=== PATIENT | male | born 1955 | race Caucasian/White ===

== ENCOUNTER 2022-11-01 14:24 | Emergency (ER) | payer MEDICARE, OTHER ==
--- NOTE | 2022-11-01 14:32 | ERPHSYRPT ---
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 Patient called an ambulance and the paramedics brought him into the emergency department because of worsening shortness of breath since yesterday. Patient also received intravenous Lasix and intravenous Solu-Medrol in route to our facility today. Patient has noticed that his feet and ankle swelling are increasing as well. He was changed to Bumex to help remove some of the fluid in his feet and ankles. 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 Patient complains of chronic neck and back pain and he sees a pain specialist, Dr. Chang, here at the hospital. Patient did not have chest pain. Patient does not have abdominal pain. Patient is here because of worsening shortness of breath despite his oxygen therapy and increasing swelling in his ankles and feet bilaterally. Timing/Duration: yesterday, worse Activities at Onset: none Severity of Dyspnea-Max: moderate Severity of Dyspnea-Current: moderate Possible Cause: occasional episodes Modifying Factors: Improves With: activity (Worsens) Associated Symptoms: edema (Bilateral feet and anklespatient states that these are worsening), No chest pain/discomfort Allergies/Adverse Reactions: Iodinated Contrast Media Allergy (Verified 11/01/22 14:28) Travel Risk - International Travel Have you traveled outside of the country in past 3 weeks: No - Coronavirus Screening Are you exhibiting any of the following symptoms?: Yes Symptoms: Shortness of Breath Close contact with a COVID-19 positive Pt in past 14-21 Days: No - Review of Systems Constitutional: Weakness Eyes: No Symptoms Ears, Nose, & Throat: No Symptoms Respiratory: Dyspnea, Dyspnea on Exertion (CHRISTOPHER) Cardiac: No Symptoms Abdominal/Gastrointestinal: No Symptoms Genitourinary Symptoms: No Symptoms Musculoskeletal: No Symptoms Skin: No Symptoms Neurological: No Symptoms Psychological: No Symptoms Endocrine: No Symptoms Hematologic/Lymphatic: No Symptoms Immunological/Allergic: No Symptoms All Other Systems: Reviewed and Negative - Past Medical History Pertinent Past Medical History: Yes - Past Surgical History Past Surgical History: Yes - Nursing Vital Signs Nursing Vital Signs: Initial Vital Signs Temperature 97.9 F 11/01/22 14:29 Pulse Rate 97 H 11/01/22 14:29 Respiratory Rate 25 H 11/01/22 14:29 Blood Pressure 125/88 11/01/22 14:29 O2 Sat by Pulse Oximetry 99 11/01/22 14:29 Pain Scale Pain Intensity 4 - Physical Exam General Appearance: no apparent distress, alert, anxiety Eye Exam: PERRL/EOMI, eyes nml inspection Ears, Nose, Throat Exam: hearing grossly normal, normal ENT inspection, normal pharynx Neck Exam: normal inspection, non-tender, supple, full range of motion Respiratory Exam: normal breath sounds, lungs clear, airway intact, No chest tenderness, No respiratory distress Cardiovascular/Chest Exam: normal heart sounds, regular rate/rhythm Abdominal/Gastrointestinal Exam: soft, normal bowel sounds, No tenderness Rectal Exam: not done Extremity Exam: non-tender, normal range of motion, pedal edema (2+ edema feet and ankles) Neurologic Exam: alert, oriented x 3, cooperative, 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, normal mood/affect Skin Exam: normal color, warm, dry Lymphatic Exam: No adenopathy SpO2 Interpretation: normal O2 Delivery: Room Air - Course Nursing assessment & vital signs reviewed: Yes EKG Interpreted by Me: RATE (92), A-fib, Left Bundle Branch Block, Other (No acute ischemic changes present on today's twelve-lead EKG.) Ordered Tests: Active Orders 24 hr Category Date Time Status Twisting Frame Operator STAT Care 11/01/22 14:51 Active EKG-ER Only STAT Care 11/01/22 14:51 Active IV Insertion STAT Care 11/01/22 14:51 Active Oxygen-ED Only Nasal Cannula 3 lpm Care 11/01/22 14:50 Active Pulse Oximetry (ED) STAT Care 11/01/22 14:51 Active CHEST 1 VIEW (PORTABLE) Stat Exams 11/01/22 15:10 Completed CBC W DIFF Stat Lab 11/01/22 15:11 Completed CMP Stat Lab 11/01/22 15:11 Completed NT PRO BNPII Stat Lab 11/01/22 15:11 Completed PROTIME WITH INR Stat Lab 11/01/22 15:11 Completed TROPONIN Q4H Lab 11/01/22 15:11 Completed TROPONIN Q4H Lab 11/01/22 19:00 Ordered TROPONIN Q4H Lab 11/01/22 23:00 Ordered Medication Summary Discontinued Medications Generic Name Dose Route Start Last Admin Trade Name Suzanna PRN Reason Stop Dose Admin Bumetanide 1 mg 11/01/22 16:00 11/01/22 16:09 Bumetanide 0.25 Mg/Ml 4ml Vial IV 11/01/22 16:01 1 mg STAT ONE Administration Bumetanide Confirm 11/01/22 16:09 Bumetanide 0.25 Mg/Ml 4ml Vial Administered 11/01/22 16:10 Dose 1 mg .ROUTE .STK-MED ONE Ceftriaxone Sodium/Dextrose 1 g in 50 mls @ 100 mls/hr 11/01/22 15:23 11/01/22 16:17 Rocephin 1 Gm-D5w 50 Ml Bag IV 11/01/22 15:52 Infused STAT STA Infusion Ceftriaxone Sodium/Dextrose Confirm 11/01/22 15:45 Rocephin 1 Gm-D5w 50 Ml Bag Administered 11/01/22 15:46 Dose 1 g in 50 mls @ ud IV .STK-MED ONE Oxycodone/Acetaminophen 1 tab 11/01/22 15:53 11/01/22 15:55 Oxycodone / Apap 10/325 Mg 1 Tablet PO 11/01/22 15:54 1 tab STAT STA Administration Oxycodone/Acetaminophen Confirm 11/01/22 15:55 Oxycodone / Apap 10/325 Mg 1 Tablet Administered 11/01/22 15:56 Dose 1 tab .ROUTE .STK-MED ONE Potassium Chloride 20 meq 11/01/22 15:46 11/01/22 15:55 Potassium Chloride Tab 10 Meq Tab PO 11/01/22 15:47 20 meq STAT ONE Administration Potassium Chloride Confirm 11/01/22 15:55 Potassium Chloride Tab 10 Meq Tab Administered 11/01/22 15:56 Dose 20 meq PO .STK-MED ONE Lab/Rad Data: Laboratory Result Diagrams 11/01/22 15:11 11/01/22 15:11 Laboratory Results 11/01/22 11/01/22 11/01/22 Range/Units 15:11 15:11 15:11 WBC (4.0-10.5) x10^3/uL RBC (4.1-5.6) x10^6/uL Hgb (12.5-18.0) g/dL Hct (42-50) % MCV (78-100) fL MCH (26-32) pg MCHC (32-36) g/dL RDW (11.5-14.0) % Plt Count (150-450) x10^3/uL MPV (7.5-11.0) fL Gran % (36.0-66.0) % Immature Gran % (Auto) (0.00-0.4) % Nucleat RBC Rel Count (0.00-0.1) % Eos # (Auto) (0-0.5) x10^3/uL Immature Gran # (Auto) (0.00-0.03) x10^3u/L Absolute Lymphs (auto) (1.0-4.6) x10^3/uL Absolute Monos (auto) (0.0-1.3) x10^3/uL Absolute Nucleated RBC (0.00-0.01) x10^3u/L Lymphocytes % (24.0-44.0) % Monocytes % (0.0-12.0) % Eosinophils % (0.00-5.0) % Basophils % (0.0-0.4) % Absolute Granulocytes (1.4-6.9) x10^3/uL Basophils # (0-0.4) x10^3/uL PT (9.4-12.5) SECONDS INR (0.8-3.0) Sodium (137-145) mmol/L Potassium (3.5-5.1) mmol/L Chloride (98-107) mmol/L Carbon Dioxide (22-30) mmol/L Anion Gap (5-15) MEQ/L BUN (9-20) mg/dL Creatinine (0.66-1.25) mg/dL Estimated GFR ML/MIN Glucose (74-106) mg/dL Calcium (8.4-10.2) mg/dL Total Bilirubin (0.2-1.3) mg/dL AST (17-59) U/L ALT (0-50) U/L Alkaline Phosphatase (38-126) U/L Troponin I 0.086 H* (0.000-0.034) ng/mL NT-Pro-B Natriuret Pep 1630 (<300) pg/mL Serum Total Protein (6.3-8.2) g/dL Albumin (3.5-5.0) g/dL Influenza Type A Ag NEGATIVE (NEGATIVE) Influenza Type B Ag NEGATIVE (NEGATIVE) RSV (PCR) NEGATIVE (NEGATIVE) SARS-CoV-2 (PCR) NEGATIVE (NEGATIVE) 11/01/22 11/01/22 11/01/22 Range/Units 15:11 15:11 15:11 WBC 6.6 (4.0-10.5) x10^3/uL RBC 3.56 L (4.1-5.6) x10^6/uL Hgb 11.0 L (12.5-18.0) g/dL Hct 35.1 L (42-50) % MCV 98.6 (78-100) fL MCH 30.9 (26-32) pg MCHC 31.3 L (32-36) g/dL RDW 14.2 H (11.5-14.0) % Plt Count 289 (150-450) x10^3/uL MPV 9.2 (7.5-11.0) fL Gran % 76.8 H (36.0-66.0) % Immature Gran % (Auto) 0.3 (0.00-0.4) % Nucleat RBC Rel Count 0.0 (0.00-0.1) % Eos # (Auto) 0.15 (0-0.5) x10^3/uL Immature Gran # (Auto) 0.02 (0.00-0.03) x10^3u/L Absolute Lymphs (auto) 0.74 L (1.0-4.6) x10^3/uL Absolute Monos (auto) 0.59 (0.0-1.3) x10^3/uL Absolute Nucleated RBC 0.00 (0.00-0.01) x10^3u/L Lymphocytes % 11.3 L (24.0-44.0) % Monocytes % 9.0 (0.0-12.0) % Eosinophils % 2.3 (0.00-5.0) % Basophils % 0.3 (0.0-0.4) % Absolute Granulocytes 5.03 (1.4-6.9) x10^3/uL Basophils # 0.02 (0-0.4) x10^3/uL PT 14.2 H (9.4-12.5) SECONDS INR 1.33 (0.8-3.0) Sodium 139 (137-145) mmol/L Potassium 3.2 L (3.5-5.1) mmol/L Chloride 88 L (98-107) mmol/L Carbon Dioxide 40 H (22-30) mmol/L Anion Gap 14.2 (5-15) MEQ/L BUN 21 H (9-20) mg/dL Creatinine 1.11 (0.66-1.25) mg/dL Estimated GFR > 60.0 ML/MIN Glucose 113 H (74-106) mg/dL Calcium 7.3 L (8.4-10.2) mg/dL Total Bilirubin 0.60 (0.2-1.3) mg/dL AST 25 (17-59) U/L ALT 17 (0-50) U/L Alkaline Phosphatase 84 (38-126) U/L Troponin I (0.000-0.034) ng/mL NT-Pro-B Natriuret Pep (<300) pg/mL Serum Total Protein 7.2 (6.3-8.2) g/dL Albumin 4.1 (3.5-5.0) g/dL Influenza Type A Ag (NEGATIVE) Influenza Type B Ag (NEGATIVE) RSV (PCR) (NEGATIVE) SARS-CoV-2 (PCR) (NEGATIVE) - Progress Progress: improved, re-examined Air Movement: good Progress Note: 11/01/22 15:23 Chest x-ray was interpreted by the radiologist and I reviewed the impression. The impression shows a mild right base infiltrate versus atelectasis. 11/01/22 17:[address] patient. He has pneumonia and elevated troponin here in the emergency department. We do not have cardiology here at this facility to monitor him and intervene rapidly in the event the troponins continue to rise or there is some change on his EKG. We contacted the [facility] in [place]. They also do not have cardiology and stated that they recommend transferring him out because that is what they would do if if this patient was at their facility with these findings. This patient has medical issues of high complexity. This is based on review of the patient's past medical history, review of the patient's medication list, review of his drug allergies, history of present illness and physical findings on examination. 11/01/22 18:42 Patient has been diagnosed with right-sided pneumonia and elevated troponin. Patient has chronic atrial fibrillation. [facility] states that they do not have any beds available. Patient does not want to be transferred anywhere else. He wants to go home. I explained to him the need to be monitored and have serial troponin levels and to be in a facility where there is a perfect bind machine operator. He does not want admission to any hospital. He wants to go home. He understands the risks to going home including worsening condition and as well as benefits of inpatient monitoring and management. He states he will sign an AGAINST MEDICAL ADVICE form. 11/01/22 18:44 Blood Culture(s) Obtained: Yes Antibiotics given: Yes Counseled pt/family regarding: lab results, diagnosis, need for follow-up, rad results Medical Desision Making - Discussion of managment Reviewed:: Test results, Need for additional workup Agreed on:: Treatment plan - Diagnostic Testing Diagnostic test were ordered, analyzed, and reviewed by me: Yes Radiological Interpretation: Reviewed by me, Teleradiologist Report - Risk of complications The pt has a high risk of morbidity or mortality based on: Decision regarding hospitilization or escalation of hosp level of care - Departure Departure Disposition: AMA Clinical Impression: Atrial fibrillation, Shortness of breath, Pneumonia, Elevated troponin Condition: Fair Critical Care Time: Yes Critical Care Time(excluding separately billable procedures): Critical 30-74 mins (40) Referrals: DOCTOR,NO FAMILY [Primary Care Provider] - Follow up/PCP as directed Additional Instructions: Take your medication as prescribed. Return to the emergency department if symptoms worsen. Follow-up with your perfect bind machine operator and primary care provider tomorrow morning, 11/02/2022. Prescriptions: Levofloxacin [Levaquin 500 MG Tablet] 500 mg PO DAILY #7 tablet
[2022-11-01 14:44] VITALS: O2SAT 99
--- NOTE | 2022-11-01 15:14 | XRAY ---
Indication: Short of breath. Comparison: None Portable chest demonstrates mild right base infiltrate versus atelectasis. Remaining heart and lungs unremarkable with incidental CABG and left AICD. Bony thorax intact with osteopenia and mild degenerative changes.
[2022-11-01 15:18] LABS: Absolute Neutrophil Ct (ANC) 5.03 x10^3/uL (1.4-6.9); BASOPHIL % 0.3 % (0.0-0.4); Basophil (Absolute #) 0.02 x10^3/uL (0-0.4); Eosinophil % 2.3 % (0.00-5.0); Eosinophil (Absolute #) 0.15 x10^3/uL (0-0.5); Hematocrit 35.1 % (42-50); IMMATURE GRAN # 0.02 x10^3u/L (0.00-0.03); IMMATURE GRAN % 0.3 % (0.00-0.4); Lymphocyte (Absolute #) 0.74 x10^3/uL (1.0-4.6); Lymphocytes % 11.3 % (24.0-44.0); Mean Cell Volume 98.6 fL (78-100); Mean Corpuscular Hemoglobin 30.9 pg (26-32); Mean Corpuscular Hgb Concent. 31.3 g/dL (32-36); Mean Platelet Volume 9.2 fL (7.5-11.0); Monocyte (Absolute #) 0.59 x10^3/uL (0.0-1.3); Neutrophil % 76.8 % (36.0-66.0); Platelet Count 289 x10^3/uL (150-450); Red Blood Count 3.56 x10^6/uL (4.1-5.6); Red Cell Distribution Width 14.2 % (11.5-14.0); White Blood Count 6.6 x10^3/uL (4.0-10.5)
[2022-11-01] MEDS ORDERED: ROCEPHIN 1 Gm-D5w 50 ml Bag** 1 G/50 ML IVPB IV STA (15:23)
[2022-11-01 15:31] LABS: ALBUMIN 4.1 g/dL (3.5-5.0); ALKALINE PHOSPHATASE 84 U/L (38-126); BLOOD UREA NITROGEN 21 mg/dL (9-20); CHLORIDE 88 mmol/L (98-107); Calcium 7.3 mg/dL (8.4-10.2); Creatinine 1 1.11 mg/dL (0.66-1.25); EST GLOMERULAR FILTRATION RATE > 60.0 ML/MIN; Glucose 113 mg/dL (74-106); INR 1.33 (0.8-3.0); PROTIME 14.2 SECONDS (9.4-12.5); Potassium 3.2 mmol/L (3.5-5.1); SGOT/AST 25 U/L (17-59); SGPT/ALT 17 U/L (0-50); SODIUM 139 mmol/L (137-145); Total Protein 7.2 g/dL (6.3-8.2)
[2022-11-01 15:37] LABS: Carbon Dioxide 40 mmol/L (22-30)
[2022-11-01 15:42] LABS: ANION GAP 14.2 MEQ/L (5-15)
[2022-11-01] MEDS ORDERED: ROCEPHIN 1 Gm-D5w 50 ml Bag** 1 G/50 ML IVPB IV ONE (15:45)
[2022-11-01] MEDS ORDERED: Klor Con PO ONE ×2 (15:46→15:55)
[2022-11-01] MEDS ORDERED: OXYCODONE-ACETAMINOPHEN 10-325 PO STA (15:53)
[2022-11-01 15:54] LABS: INFLUENZA A NEGATIVE (NEGATIVE); INFLUENZA B NEGATIVE (NEGATIVE); RESPIRATORY SYNCTIAL VIRUS NEGATIVE (NEGATIVE); SARS-CoV-2 Xpert Express NEGATIVE (NEGATIVE)
[2022-11-01] MEDS ORDERED: OXYCODONE-ACETAMINOPHEN 10-325 ONE (15:55)
[2022-11-01] MEDS ORDERED: BUMEX 1 MG IV ONE (16:00)
[2022-11-01 16:08] VITALS: BP 107/79
[2022-11-01] MEDS ORDERED: BUMEX 1 MG ONE (16:09)
[2022-11-01 17:06] VITALS: PULSE 92
== END 2022-11-01 19:00 | disposition left against medical advice (07) ==
LOC: ED 14:24
DX: I48.91 Unspecified atrial fibrillation (principal); R06.02 Shortness of breath; J18.9 Pneumonia, unspecified organism; R77.8 Other specified abnormalities of plasma proteins; R60.0 Localized edema; J44.9 Chronic obstructive pulmonary disease, unspecified; I50.9 Heart failure, unspecified; Z99.81 Dependence on supplemental oxygen
CPT/HCPCS: 0241U; 36000; 36415; 71045; 80053; 83880; 84484; 85025; 85610; 93005; 93041; 94760; 96365; 96374; 99284; 99291; J0696; A9270-GY